=== PATIENT | female | born 1930 | race Caucasian/White ===

== ENCOUNTER 2016-08-22 12:45 | Observation (INO) | payer MEDICARE, OTHER ==
[~2016-08-22 12:45] MED LIST: ACETAMINOPHEN325 MG PO; ADULT LOW DOSE81 M1 PO; ALBUTEROL SUL5 MG/ML INH; ASPIRIN325 MG PO; ATORVASTATIN CA10 M1 PO; ATORVASTATIN CA10 MG PO; AVAPRO300 MG PO; BYSTOLIC10 MG PO; BYSTOLIC5 MG PO; CALCIUM + VITA1 EAC4 PO; CIPRO250 MG PO; CULTURELLE1 CA1 PO; ESTROPIPATE0.75 MG PO; HYDROCHLOROTHIA25 MG PO; HYTRIN5 MG PO; IRBESARTAN300 MG PO; LEXAPRO10 M2 PO; LISINOPRIL20 MG PO; MULTIVITAMINS1 EAC6 PO; NORCO 5/3251 TA1 PO; NORVASC10 M1 PO; NORVASC10 MG PO; OMNICEF300 MG PO; PRINIVIL20 M1 PO; PROGESTERONE100 MG PO; PROMETRIUM100 MG PO; SYNTHROID100 MC1 PO; SYNTHROID125 MCG PO; TESSALON200 MG PO; VESICARE5 MG PO; VITAMIN C500 M3 PO; VITAMIN D31000 UNI3 PO; ZESTRIL20 MG PO; ZESTRIL40 M1 PO
[2016-08-22 13:22] LABS: BASO % 0.2 % (0-2); EOS % 2.2 % (0-7); EOSINOPHIL ABSOLUTE COUNT 0.2 tho/cmm (0.0-0.7); HCT-HEMATOCRIT 40.8 % (34.0-49.0); HGB-HEMOGLOBIN 13.3 gm/dl (12.0-15.5); IMMATURE GRANULOCYTES ABSOLUTE 0.03 tho/cmm (0-0.03); IMMATURE GRANULOCYTES PERCENT 0.4 % (0-0.3); LYMPH % 16.2 % (20-45); LYMPH ABSOLUTE COUNT 1.4 tho/cmm (0.8-4.5); MCH (MEAN CORPUSCULAR HGB) 31.4 pg (28.0-32.0); MCHC MEAN CORPUSCULAR HGB CONC 32.6 % (32.0-36.0); MCV (MEAN CELL VOLUME) 96.5 fl (82.0-96.0); MEAN PLATELET VOLUME 10.5 cmc (9.4-12.4); MONO % 8.6 % (0-12); MONOCYTE ABSOLUTE COUNT 0.7 tho/cmm (0.0-1.2); NEUTROPHIL ABSOLUTE COUNT 6.1 tho/cmm (1.6-8.0); NEUTROPHIL-AUTOMATED 6.1 tho/cmm (1.6-8.0); NEUTROPHILS % 72.4 % (40-80); PLATELET COUNT 318 tho/cmm (150-450); RED BLOOD COUNT 4.23 mil/cmm (4.00-5.20); RED CELL DISTRIBUTION WIDTH 13.7 % (12.4-16.4); WHITE BLOOD COUNT 8.5 tho/cmm (4.0-10.0)
[2016-08-22] MEDS ORDERED: XARELTO15 M1 PO (13:34)
[2016-08-22 13:36] LABS: ALB/GLOB RATIO 0.8 (0.8-2.0); ALBUMIN 3.6 g/dl (3.5-5.0); ALKALINE PHOSPHATASE 110 U/L (33-138); BILIRUBIN,TOTAL 1.2 mg/dl (0-1.5); BLOOD UREA NITROGEN 15 mg/dl (6-24); CALCIUM 8.8 mg/dl (8.5-10.5); CARBON DIOXIDE-VENOUS 25 mmol/L (22-32); CHLORIDE 103 mmol/l (96-110); GLUCOSE 111 mg/dL (70-110); SODIUM 138 mmol/L (135-145); eGFR VALUE FOR BLACK 58 mL/Min
[2016-08-22 13:37] LABS: ALT/SGPT 49 U/L (12-78); ANION GAP 15 mmol/L (0-20); AST/SGOT 66 U/L (10-40); BILIRUBIN,DIRECT 0.2 mg/dl (0.0-0.3); POTASSIUM 4.7 mmol/L (3.7-5.1)
[2016-08-24 06:36] LABS: BASO % 0.3 % (0-2); EOS % 4.6 % (0-7); EOSINOPHIL ABSOLUTE COUNT 0.3 tho/cmm (0.0-0.7); HCT-HEMATOCRIT 35.1 % (34.0-49.0); HGB-HEMOGLOBIN 11.2 gm/dl (12.0-15.5); IMMATURE GRANULOCYTES ABSOLUTE 0.01 tho/cmm (0-0.03); IMMATURE GRANULOCYTES PERCENT 0.1 % (0-0.3); LYMPH ABSOLUTE COUNT 1.2 tho/cmm (0.8-4.5); MCHC MEAN CORPUSCULAR HGB CONC 31.9 % (32.0-36.0); MCV (MEAN CELL VOLUME) 97.2 fl (82.0-96.0); MEAN PLATELET VOLUME 10.5 cmc (9.4-12.4); MONO % 12.6 % (0-12); MONOCYTE ABSOLUTE COUNT 0.9 tho/cmm (0.0-1.2); NEUTROPHIL ABSOLUTE COUNT 4.4 tho/cmm (1.6-8.0); NEUTROPHIL-AUTOMATED 4.4 tho/cmm (1.6-8.0); NEUTROPHILS % 64.4 % (40-80); PLATELET COUNT 273 tho/cmm (150-450); RED BLOOD COUNT 3.61 mil/cmm (4.00-5.20); RED CELL DISTRIBUTION WIDTH 13.8 % (12.4-16.4); WHITE BLOOD COUNT 6.9 tho/cmm (4.0-10.0)
[2016-08-24 06:42] LABS: ANION GAP 9 mmol/L (0-20); BLOOD UREA NITROGEN 19 mg/dl (6-24); CALCIUM 8.1 mg/dl (8.5-10.5); CARBON DIOXIDE-VENOUS 33 mmol/L (22-32); CHLORIDE 103 mmol/l (96-110); CREATININE 1.04 mg/dl (0.50-1.10); GLUCOSE 88 mg/dL (70-110); PHOSPHOROUS 3.7 mg/dl (2.5-4.9); SODIUM 141 mmol/L (135-145); eGFR VALUE FOR BLACK 56 mL/Min
[2016-08-24 06:51] LABS: POTASSIUM 3.6 mmol/L (3.7-5.1)
[2016-08-24] MEDS ORDERED: COREG6.25 M1 PO (15:11)
[2016-08-24] MEDS ORDERED: ATROVENT HFA1 PUFF INH (15:15)
[2016-08-24] MEDS ORDERED: COMBIVENT RESPIM4 G1 INH (15:31)
== END 2016-08-24 15:50 ==
LOC: EDMED 12:45 → EMR2 17:27 → CAR1 17:57
PROVIDERS: Emergency Medicine; Internal Medicine; ADMIT Internal Medicine Cardiovascular Disease
DX: I16.0 Hypertensive urgency (principal); I48.0 Paroxysmal atrial fibrillation; I48.92 Unspecified atrial flutter; I12.9 Hypertensive chronic kidney disease with stage 1 through stage 4 chronic kidney disease, or unspecified chronic kidney disease; N18.3 Chronic kidney disease, stage 3 (moderate); I08.3 Combined rheumatic disorders of mitral, aortic and tricuspid valves; J90 Pleural effusion, not elsewhere classified; R60.9 Edema, unspecified; Z88.2 Allergy status to sulfonamides; Z79.82 Long term (current) use of aspirin; Z79.899 Other long term (current) drug therapy; Z79.01 Long term (current) use of anticoagulants; Z98.41 Cataract extraction status, right eye; Z98.42 Cataract extraction status, left eye; Z96.643 Presence of artificial hip joint, bilateral; Z98.890 Other specified postprocedural states
CPT/HCPCS: G0378; J1940; J7030

== ENCOUNTER 2016-09-03 09:11 | Observation (INO) | payer MEDICARE, OTHER ==
[~2016-09-03 09:11] MED LIST changes: +ATROVENT HFA1 PUFF INH; +COMBIVENT RESPIM4 G1 INH; +COREG6.25 M1 PO; +XARELTO15 M1 PO
[2016-09-03] MEDS ORDERED: COMBIVENT RESPIM4 G1 INH (09:26)
[2016-09-03 09:59] LABS: BASO % 0.3 % (0-2); EOS % 2.9 % (0-7); EOSINOPHIL ABSOLUTE COUNT 0.2 tho/cmm (0.0-0.7); HCT-HEMATOCRIT 38.8 % (34.0-49.0); HGB-HEMOGLOBIN 12.5 gm/dl (12.0-15.5); IMMATURE GRANULOCYTES ABSOLUTE 0.01 tho/cmm (0-0.03); IMMATURE GRANULOCYTES PERCENT 0.1 % (0-0.3); LYMPH % 10.4 % (20-45); LYMPH ABSOLUTE COUNT 0.8 tho/cmm (0.8-4.5); MCH (MEAN CORPUSCULAR HGB) 31.1 pg (28.0-32.0); MCHC MEAN CORPUSCULAR HGB CONC 32.2 % (32.0-36.0); MCV (MEAN CELL VOLUME) 96.5 fl (82.0-96.0); MONO % 11.3 % (0-12); MONOCYTE ABSOLUTE COUNT 0.9 tho/cmm (0.0-1.2); NEUTROPHIL ABSOLUTE COUNT 5.6 tho/cmm (1.6-8.0); NEUTROPHIL-AUTOMATED 5.6 tho/cmm (1.6-8.0); PLATELET COUNT 266 tho/cmm (150-450); RED BLOOD COUNT 4.02 mil/cmm (4.00-5.20); RED CELL DISTRIBUTION WIDTH 13.6 % (12.4-16.4); WHITE BLOOD COUNT 7.5 tho/cmm (4.0-10.0)
[2016-09-03 10:13] LABS: ALB/GLOB RATIO 0.8 (0.8-2.0); ALBUMIN 3.5 g/dl (3.5-5.0); ALKALINE PHOSPHATASE 112 U/L (33-138); ALT/SGPT 109 U/L (12-78); ANION GAP 12 mmol/L (0-20); AST/SGOT 84 U/L (10-40); BILIRUBIN,TOTAL 1.5 mg/dl (0-1.5); BLOOD UREA NITROGEN 17 mg/dl (6-24); CALCIUM 8.5 mg/dl (8.5-10.5); CARBON DIOXIDE-VENOUS 25 mmol/L (22-32); CHLORIDE 107 mmol/l (96-110); CREATININE 0.89 mg/dl (0.50-1.10); GLUCOSE 120 mg/dL (70-110); POTASSIUM 4.3 mmol/L (3.7-5.1); SODIUM 140 mmol/L (135-145); eGFR VALUE FOR BLACK 67 mL/Min
[2016-09-04] MEDS ORDERED: CATAPRES0.2 M1 PO (09:00)
[2016-09-04] MEDS ORDERED: ASPIRIN81 M1 PO (09:02)
[2016-09-04] MEDS ORDERED: LASIX20 M1 PO (09:03)
== END 2016-09-04 10:26 ==
LOC: EDMED 09:11 → EMR2 12:08 → CAR1 14:15
PROVIDERS: Emergency Medicine; ADMIT Internal Medicine Cardiovascular Disease
DX: R06.00 Dyspnea, unspecified (principal); I48.2 Chronic atrial fibrillation; I48.92 Unspecified atrial flutter; R74.0 Nonspecific elevation of levels of transaminase and lactic acid dehydrogenase [LDH]; J90 Pleural effusion, not elsewhere classified; I16.0 Hypertensive urgency; E89.0 Postprocedural hypothyroidism; Z79.01 Long term (current) use of anticoagulants; Z79.82 Long term (current) use of aspirin; Z79.899 Other long term (current) drug therapy; Z88.2 Allergy status to sulfonamides; Z86.73 Personal history of transient ischemic attack (TIA), and cerebral infarction without residual deficits; Z87.891 Personal history of nicotine dependence; Z96.643 Presence of artificial hip joint, bilateral; Z98.890 Other specified postprocedural states
CPT/HCPCS: G0378; J1940